=== PATIENT | male | born 1970 | race Two or more races ===

== ENCOUNTER 2024-07-27 07:47 | Outpatient (AMB) | payer MEDICAID, SELFPAY ==
[2024-07-27 07:57] VITALS: BP 137/90; PULSE 73; RESP 18; TEMP 36.6; O2SAT 94; BMI 47.9
--- NOTE | 2024-07-27 07:57 | ORTHONT_ITS ---
Vital signs 07/27/24 07:57 Height 1.56 m Height Method Stated Weight 116.658 kg Weight Measurement Method Standing Scale BMI 47.9 BP 137/90 H Blood Pressure Source Automatic Cuff Blood Pressure Location Left Upper Arm Position Sitting Respiration 18 Pulse 73 Pulse Source Monitor Temp 97.9 F Temp Source Temporal Artery Scan Pulse Oximetry (%) 94 L Oxygen Delivery Method Room Air Med/Allergies Allergies & Medications Allergies No Known Drug Allergies Allergy (Verified 07/27/24 07:58) Medication Reconciliation ergocalciferol (vitamin D2) 1,250 mcg (50,000 unit) capsule 1,250 mcg PO QWEEK 05/06/24 [History Confirmed 07/27/24] hydrochlorothiazide 25 mg tablet 25 mg PO QDAY 05/06/24 [History Confirmed 07/27/24] lisinopril 40 mg tablet 40 mg PO QDAY 05/06/24 [History Confirmed 07/27/24] tirzepatide (weight loss) 7.5 mg/0.5 mL subcutaneous pen injector (Zepbound) 7.5 mg subcut QWEEK 07/27/24 [History Confirmed 07/27/24] Subjective Visit Visit for: follow up visit and knee Immunization / Flu Flu Vaccine in the Last 12 Months: No Flu Vaccine Exclusion Criteria: Refused by Patient History of Present Illness Chief complaint: 3 MONTH FOLLOW UP Date of injury / onset of symptoms: 2 -3 YRS PAIN WORSENING SINCE JULY 2023 Patient is a 53 year old male With bilateral knee pain. The pain is on the medial aspect and his knees have been hurting him for a while. He tried injections which lasted only a week. He is also tried formal physical therapy and anti-inflammatories. The pain is affecting his quality life and happiness. He has lost 10 pounds and is on a weight loss injection. 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 Exam Exam Patient is in no acute distress and is cooperative with the examination today. Breathing is nonlabored. In no respiratory distress. Bilateral extremities were evaluated and demonstrates sensation intact to light touch. Palpable pedal pulses are present. No significant edema is present. Bilateral hips were examined. The patient has no pain with log roll of the hips. Internal rotation to 30 degrees and external rotation to 30 degrees is painless. Negative FADIR. The left knee was examined. The left knee is in [varus] alignment. Range of motion from 0-110 degrees. Knee is stable to varus and valgus as well as AP translation with <5mm. Patient has a [negative] McMurrays. There is [no] pain with patellofemoral compression and [no] crepitus noted. The knee is [tender] to palpation [medially]. The right knee was also examined. The right knee is in [varus] alignment. Range of motion from 0-110 degrees. Knee is stable to varus and valgus as well as AP translation with <5mm. Patient has a [negative] McMurrays. There is [no] pain with patellofemoral compression and [no] crepitus noted. The knee is [tender] to palpation [medially]. Bilateral knee x-rays from [place] [facility] demonstrate impressive varus deformity. There is complete obliteration of the medial joint space and osteophytes Assessment and Plan Problem List (1) Degenerative arthritis of knee, bilateral: Status: Acute Plan: Patient is a 53-year-old male with severe bilateral knee arthritis of both knees. There is Complete obliteration of medial joint space and varus deformity. His BMI is currently 50 at this time and unfortunately this puts him at an extremely high infection risk. He will need to be medically optimized and we recommend weight loss. He is on weight loss injections and has lost 10 pounds. Recommend knee cortisone injection as patient would like to proceed with conservative treatment at this time. The risks and benefits of the procedure were reviewed with the patient and patient gave verbal consent to continue with the procedure. Procedure: performed by Dr. Buckley Using sterile technique the left knee was thoroughly prepped with alcohol, and approximately 1 cc of Kenalog 40 mg/mL and 4 cc of 1% lidocaine was injected without resistance into the medial tibial femoral joint space. The patient tolerated the procedure. Office Procedures GNS Level of Care Nursing/Assessment Patient Status: Established Patient Nursing Assessment/Reassesment: Medication Reconciliation, Update PMH in EMR and Vital Signs Coordination of Care: Complex Care and Chronic Disease 1-5, Education Complex Pt/Fam, Consent,records obtained, informed consent, 1 Ins Authorization, Results/Orders obtained and Staff clarify orders Special Needs: Language special needs Established Patient Charge Established Patient Point Assignment: 110 Established Patient Point Charge: EP Level 3 (80-115) Surgical Proc/IM SQ injection Major Surgical Procedure: Yes (LEFT KNEE INJECTION) Medication Given Medication Given Medication Given: Yes Documented Dose Given: 4 Route: Infiitration Medication Given Medication Given Medication Given: Yes Documented Dose Given: 1 Route: Infiitration Office Meds Xylocaine 10 mg/mL (1 %) injection solution Performing Provider: Faraz Buckley MD Performing Location: [facility] Administered by: Faraz Buckley MD on 07/27/24 08:46 Dose Route Admin Location Dispensed Lot Number Expiration Date [facility] Assistant Professor In Family Studies 20 mL Infiltration 20 mL [id number] 04/23/27 91127-169-83 [facility] triamcinolone acetonide 40 mg/mL suspension for injection Performing Provider: Faraz Buckley MD Performing Location: [facility] Administered by: Faraz Buckley MD on 07/27/24 08:46 Dose Route Admin Location Dispensed Lot Number Expiration Date [facility] Assistant Professor In Family Studies 40 mg Infiltration 1 mL [id number] 01/21/26 3482-4803-75 [employer] PARENTERAL Past Medical History Past Medical History Have you ever been diagnosed with any of the following: Cardiology Problems Hypertension: Yes Respiratory Problems Smoking: No Smoking Exposure: No Tobacco Use: No Clubbing: No Exposure to Respiratory Irritants: No
== END 2024-07-27 08:21 | disposition home or self-care (01) ==
LOC: HODSRG 07:47
PROVIDERS: PCP Physician Assistant Medical; Referring Provider Physician Assistant Medical; Supervising Provider Orthopaedic Surgery Adult Reconstructive Orthopaedic Surgery; Visit Provider Orthopaedic Surgery Adult Reconstructive Orthopaedic Surgery
DX: M17.0 Bilateral primary osteoarthritis of knee (principal); M21.162 Varus deformity, not elsewhere classified, left knee; M21.161 Varus deformity, not elsewhere classified, right knee; I10 Essential (primary) hypertension
CPT/HCPCS: 20610; 99213; J3301; J3490; G0463

== ENCOUNTER 2024-09-28 08:05 | Outpatient (AMB) | payer MEDICAID, SELFPAY ==
--- NOTE | 2024-09-28 08:12 | ORTHONT_ITS ---
Vital signs 09/28/24 08:13 Height 1.56 m Height Method Stated Weight 112.689 kg Weight Measurement Method Standing Scale BMI 46.3 BP 112/78 Blood Pressure Source Automatic Cuff Blood Pressure Location Right Upper Arm Position Sitting Respiration 19 Pulse 109 H Pulse Source Monitor Temp 97.3 F Temp Source Temporal Artery Scan Pulse Oximetry (%) 94 L Oxygen Delivery Method Room Air Med/Allergies Allergies & Medications Allergies No Known Drug Allergies Allergy (Verified 09/28/24 08:13) Exam Exam Patient is in no acute distress and is cooperative with the examination today. Breathing is nonlabored. In no respiratory distress. Bilateral extremities were evaluated and demonstrates sensation intact to light touch. Palpable pedal pulses are present. No significant edema is present. Bilateral hips were examined. The patient has no pain with log roll of the hips. Internal rotation to 30 degrees and external rotation to 30 degrees is painless. Negative FADIR. The left knee was examined. The left knee is in [varus] alignment. Range of motion from 0-110 degrees. Knee is stable to varus and valgus as well as AP translation with <5mm. Patient has a [negative] McMurrays. There is [no] pain with patellofemoral compression and [no] crepitus noted. The knee is [tender] to palpation [medially]. The right knee was also examined. The right knee is in [varus] alignment. Range of motion from 0-110 degrees. Knee is stable to varus and valgus as well as AP translation with <5mm. Patient has a [negative] McMurrays. There is [no] pain with patellofemoral compression and [no] crepitus noted. The knee is [tender] to palpation [medially]. Bilateral knee x-rays from [place] [facility] demonstrate impressive varus deformity. There is complete obliteration of the medial joint space and osteophytes Assessment and Plan Problem List (1) Degenerative arthritis of knee, bilateral: Status: Acute Plan: Patient is a 53-year-old male with severe bilateral knee arthritis of both knees. There is Complete obliteration of medial joint space and varus deformity. His BMI is currently 50 at this time and unfortunately this puts him at an extremely high infection risk. He will need to be medically optimized and we recommend weight loss. He is on weight loss injections and has lost 10 pounds. We recommend weight loss again and discussed that he is at extremely high risk of infection. He seems confused regarding why and we spent an extensive amount of time explaining that this puts him at high risk of complications. Office Procedures GNS Level of Care Nursing/Assessment Patient Status: Established Patient Nursing Assessment/Reassesment: Medication Reconciliation, Update PMH in EMR and Vital Signs Coordination of Care: Complex Care and Chronic Disease 1-5, Education Complex Pt/Fam, Consent,records obtained, informed consent, Results/Orders obtained and Staff clarify orders Special Needs: Language special needs Established Patient Charge Established Patient Point Assignment: 95 Established Patient Point Charge: EP Level 3 (80-115) MA Intake Visit Data Collection New Patient or Established: Established Patient (seen at [facility] within 3 years) Reason for Visit:: F/u weightloss & knee pain Seen by Clinical Staff ONLY (RN/MA): No Verbal consent obtained for Telemed visit?: No 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: Yes PCP or OBGYN visit in last 3 months: Yes Hx Now: No Do You Feel Safe at Home: Yes Authorities Contacted: N/A Questionairres Past Medical History Past Medical History Have you ever been diagnosed with any of the following: Cardiology Problems Hypertension: Yes Respiratory Problems Smoking: No Smoking Exposure: No Tobacco Use: No Clubbing: No Exposure to Respiratory Irritants: No Subjective Visit Visit for: follow up visit and knee Immunization / Flu Flu Vaccine in the Last 12 Months: Yes Flu Vaccine Exclusion Criteria: Already Received History of Present Illness Chief complaint: f/u weightloss & knee pain Patient is a 53 year old male With bilateral knee pain. The pain is on the medial aspect and his knees have been hurting him for a while. He tried injections which lasted only a week. He is also tried formal physical therapy and anti-inflammatories. The pain is affecting his quality life and happiness. He has lost 10 pounds and is on a weight loss injection which he stopped recently. Pain Pain level (0-10): 8 Pain duration: ALL DAY Pain location: inside (medial), outside (lateral), anterior and posterior Pain quality: sharp, dull and aching Pain timing: night, increases with activity and stairs Associated signs & symptoms: numbness, weakness and stiffness Ambulatory data Ambulatory device: none Treatments Improvement with previous injections: No Improvement with PT: No Improvement with NSAIDS: no Review of Systems Review of Systems: All systems negative unless otherwise noted in HPI.
[2024-09-28 08:13] VITALS: BP 112/78; PULSE 109; RESP 19; TEMP 36.3; O2SAT 94; BMI 46.3
== END 2024-09-28 08:36 | disposition home or self-care (01) ==
LOC: HODSRG 08:05
PROVIDERS: PCP Physician Assistant Medical; Referring Provider Physician Assistant Medical; Supervising Provider Orthopaedic Surgery Adult Reconstructive Orthopaedic Surgery; Visit Provider Orthopaedic Surgery Adult Reconstructive Orthopaedic Surgery
DX: M17.0 Bilateral primary osteoarthritis of knee (principal); M21.162 Varus deformity, not elsewhere classified, left knee; M21.161 Varus deformity, not elsewhere classified, right knee; I10 Essential (primary) hypertension
CPT/HCPCS: 99213; G0463

== ENCOUNTER 2024-11-09 08:28 | Outpatient (AMB) | payer MEDICAID, SELFPAY ==
--- NOTE | 2024-11-09 08:33 | PD.ORTHCLVIS ---
Vital signs 11/09/24 08:45 Height 1.56 m Height Method Stated Weight 109.769 kg Weight Measurement Method Standing Scale BMI 45.1 BP 158/111 H Blood Pressure Source Automatic Cuff Blood Pressure Location Left Upper Arm Position Sitting Respiration 18 Pulse 74 Pulse Source Monitor Temp 97.8 F Temp Source Temporal Artery Scan Pulse Oximetry (%) 95 Oxygen Delivery Method Room Air Med/Allergies Allergies & Medications Allergies No Known Drug Allergies Allergy (Verified 11/09/24 08:47) Medication Reconciliation ergocalciferol (vitamin D2) 1,250 mcg (50,000 unit) capsule 1,250 mcg PO QWEEK 05/06/24 [History Confirmed 11/09/24] hydrochlorothiazide 25 mg tablet 25 mg PO QDAY 05/06/24 [History Confirmed 11/09/24] lisinopril 40 mg tablet 40 mg PO QDAY 05/06/24 [History Confirmed 11/09/24] tirzepatide (weight loss) 7.5 mg/0.5 mL subcutaneous pen injector (Zepbound) 7.5 mg subcut QWEEK 07/27/24 [History Confirmed 11/09/24] Exam Exam Patient is in no acute distress and is cooperative with the examination today. Breathing is nonlabored. In no respiratory distress. Bilateral extremities were evaluated and demonstrates sensation intact to light touch. Palpable pedal pulses are present. No significant edema is present. Bilateral hips were examined. The patient has no pain with log roll of the hips. Internal rotation to 30 degrees and external rotation to 30 degrees is painless. Negative FADIR. The left knee was examined. The left knee is in [varus] alignment. Range of motion from 0-110 degrees. Knee is stable to varus and valgus as well as AP translation with <5mm. Patient has a [negative] McMurrays. There is [no] pain with patellofemoral compression and [no] crepitus noted. The knee is [tender] to palpation [medially]. The right knee was also examined. The right knee is in [varus] alignment. Range of motion from 0-110 degrees. Knee is stable to varus and valgus as well as AP translation with <5mm. Patient has a [negative] McMurrays. There is [no] pain with patellofemoral compression and [no] crepitus noted. The knee is [tender] to palpation [medially]. Bilateral knee x-rays from [place] [facility] demonstrate impressive varus deformity. There is complete obliteration of the medial joint space and osteophytes Assessment and Plan Problem List (1) Degenerative arthritis of knee, bilateral: Status: Acute Plan: Patient is a 53-year-old male with severe bilateral knee arthritis of both knees. There is Complete obliteration of medial joint space and varus deformity. His BMI is currently 45 at this time. We recommend continued weight loss and we will do bilateral knee injections today. Recommend knee cortisone injection as patient would like to proceed with conservative treatment at this time. The risks and benefits of the procedure were reviewed with the patient and patient gave verbal consent to continue with the procedure. Procedure: performed by Dr. Buckley Using sterile technique the Right knee was thoroughly prepped with alcohol, and approximately 1 cc of Kenalog 40 mg/mL and 4 cc of 1% lidocaine was injected without resistance into the medial tibial femoral joint space. The patient tolerated the procedure. Office Procedures GNS Level of Care Nursing/Assessment Patient Status: Established Patient Nursing Assessment/Reassesment: Medication Reconciliation, Update PMH in EMR and Vital Signs Coordination of Care: Complex Care and Chronic Disease 1-5, Education Complex Pt/Fam, Consent,records obtained, informed consent, Results/Orders obtained and Staff clarify orders Special Needs: Language special needs Established Patient Charge Established Patient Point Assignment: 95 Established Patient Point Charge: EP Level 3 (80-115) Surgical Proc/IM SQ injection Major Surgical Procedure: Yes (RIGHT KNEE INJECTION) Medication Given Medication Given Medication Given: Yes Documented Dose Given: 4 Route: Infiitration Medication Given Medication Given Medication Given: Yes Documented Dose Given: 1 Route: Infiitration Office Meds Xylocaine 10 mg/mL (1 %) injection solution Performing Provider: Faraz Buckley MD Performing Location: [facility] Administered by: Faraz Buckley MD on 11/09/24 09:32 Dose Route Admin Location Dispensed Lot Number Expiration Date [facility] Supervisor Film Processing 20 mL Infiltration 20 mL [id number] 02/22/28 94410-969-61 [employer] triamcinolone acetonide 40 mg/mL suspension for injection Performing Provider: Faraz Buckley MD Performing Location: [facility] Administered by: Faraz Buckley MD on 11/09/24 09:32 Dose Route Admin Location Dispensed Lot Number Expiration Date [facility] Supervisor Film Processing 40 mg intra-articular KNEE 1 mL [id number] 06/23/26 [id number] TEVA PARENTERAL MA Intake Visit Data Collection New Patient or Established: Established Patient (seen at [facility] within 3 years) Reason for Visit:: F/U WEIGHTLOSS Seen by Clinical Staff ONLY (RN/MA): No Verbal consent obtained for Telemed visit?: No Teacher Dramatics Required: Yes PCP or OBGYN visit in last 3 months: Yes Hx Now: No Do You Feel Safe at Home: Yes Authorities Contacted: N/A Questionairres Past Medical History Past Medical History Have you ever been diagnosed with any of the following: Cardiology Problems Hypertension: Yes Respiratory Problems Smoking: No Smoking Exposure: No Tobacco Use: No Clubbing: No Exposure to Respiratory Irritants: No Subjective Visit Visit for: follow up visit, knee and injections Immunization / Flu Flu Vaccine in the Last 12 Months: Yes Flu Vaccine Exclusion Criteria: No Exclusion Criteria and Already Received History of Present Illness Chief complaint: f/u weightloss & knee pain Patient is a 53 year old male With bilateral knee pain. The pain is on the medial aspect and his knees have been hurting him for a while. He tried injections which lasted only a week. He is also tried formal physical therapy and anti-inflammatories. The pain is affecting his quality life and happiness. He has lost 10 pounds since we last saw him. Pain Pain level (0-10): 8 Pain duration: ALL DAY Pain location: inside (medial), outside (lateral), anterior and posterior Pain quality: sharp, dull and aching Pain timing: night, increases with activity and stairs Associated signs & symptoms: numbness, weakness and stiffness Ambulatory data Ambulatory device: cane and none Treatments Improvement with previous injections: No Improvement with PT: No Improvement with NSAIDS: no Review of Systems Review of Systems: All systems negative unless otherwise noted in HPI.
[2024-11-09 08:45] VITALS: BP 158/111; PULSE 74; RESP 18; TEMP 36.6; O2SAT 95; BMI 45.1
== END 2024-11-09 08:56 | disposition home or self-care (01) ==
LOC: HODSRG 08:28
PROVIDERS: PCP Physician Assistant Medical; Referring Provider Physician Assistant Medical; Supervising Provider Orthopaedic Surgery Adult Reconstructive Orthopaedic Surgery; Visit Provider Orthopaedic Surgery Adult Reconstructive Orthopaedic Surgery
DX: M17.0 Bilateral primary osteoarthritis of knee (principal); I10 Essential (primary) hypertension
CPT/HCPCS: 20610; 99213; J3301; J3490; G0463

== ENCOUNTER 2024-12-09 07:58 | Outpatient (AMB) | payer MEDICAID, SELFPAY ==
[2024-12-09 08:05] VITALS: BP 156/108; PULSE 80; RESP 18; TEMP 36.5; O2SAT 96; BMI 42.0
--- NOTE | 2024-12-09 08:05 | PD.ORTHCLVIS ---
Vital signs 12/09/24 08:05 Height 1.6 m Height Method Stated Weight 107.558 kg Weight Measurement Method Standing Scale BMI 42.0 BP 156/108 H Blood Pressure Source Automatic Cuff Blood Pressure Location Right Upper Arm Position Sitting Respiration 18 Pulse 80 Pulse Source Monitor Temp 97.7 F Temp Source Temporal Artery Scan Pulse Oximetry (%) 96 Oxygen Delivery Method Room Air Med/Allergies Allergies & Medications Allergies No Known Drug Allergies Allergy (Verified 12/09/24 08:08) Medication Reconciliation ergocalciferol (vitamin D2) 1,250 mcg (50,000 unit) capsule 1,250 mcg PO QWEEK 05/06/24 [History Confirmed 12/09/24] hydrochlorothiazide 25 mg tablet 25 mg PO QDAY 05/06/24 [History Confirmed 12/09/24] lisinopril 40 mg tablet 40 mg PO QDAY 05/06/24 [History Confirmed 12/09/24] tirzepatide (weight loss) 7.5 mg/0.5 mL subcutaneous pen injector (Zepbound) 7.5 mg subcut QWEEK 07/27/24 [History Confirmed 12/09/24] Exam Exam Patient is in no acute distress and is cooperative with the examination today. Breathing is nonlabored. In no respiratory distress. Bilateral extremities were evaluated and demonstrates sensation intact to light touch. Palpable pedal pulses are present. No significant edema is present. Bilateral hips were examined. The patient has no pain with log roll of the hips. Internal rotation to 30 degrees and external rotation to 30 degrees is painless. Negative FADIR. The left knee was examined. The left knee is in [varus] alignment. Range of motion from 0-110 degrees. Knee is stable to varus and valgus as well as AP translation with <5mm. Patient has a [negative] McMurrays. There is [no] pain with patellofemoral compression and [no] crepitus noted. The knee is [tender] to palpation [medially]. The right knee was also examined. The right knee is in [varus] alignment. Range of motion from 0-110 degrees. Knee is stable to varus and valgus as well as AP translation with <5mm. Patient has a [negative] McMurrays. There is [no] pain with patellofemoral compression and [no] crepitus noted. The knee is [tender] to palpation [medially]. Bilateral knee x-rays from [place] [facility] demonstrate impressive varus deformity. There is complete obliteration of the medial joint space and osteophytes Assessment and Plan Problem List (1) Degenerative arthritis of knee, bilateral: Status: Acute Plan: Patient is a 53-year-old male with severe bilateral knee arthritis of both knees. There is Complete obliteration of medial joint space and varus deformity. His BMI is currently 42 at this time. We recommend continued weight loss. I would need to get new weight bearing films as it has been over 18 months since the last ones. Iwould like for him to lose 5-6 pounds if possible. Office Procedures GNS Level of Care Nursing/Assessment Patient Status: Established Patient Nursing Assessment/Reassesment: Medication Reconciliation, Update PMH in EMR and Vital Signs Coordination of Care: Complex Care and Chronic Disease 1-5, Education Complex Pt/Fam, Consent,records obtained, informed consent, Results/Orders obtained and Staff clarify orders Special Needs: Language special needs Established Patient Charge Established Patient Point Assignment: 95 Established Patient Point Charge: EP Level 3 (80-115) MA Intake Visit Data Collection New Patient or Established: Established Patient (seen at [facility] within 3 years) Reason for Visit:: F/U WEIGHT LOSS Seen by Clinical Staff ONLY (RN/MA): No Hazardous Materials Waste 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: Yes PCP or OBGYN visit in last 3 months: Yes Hx Now: No Do You Feel Safe at Home: Yes Authorities Contacted: N/A Questionairres Past Medical History Past Medical History Have you ever been diagnosed with any of the following: Cardiology Problems Hypertension: Yes Respiratory Problems Smoking: No Smoking Exposure: No Tobacco Use: No Clubbing: No Exposure to Respiratory Irritants: No Subjective Visit Visit for: follow up visit Immunization / Flu Flu Vaccine in the Last 12 Months: No Flu Vaccine Exclusion Criteria: No Exclusion Criteria History of Present Illness Chief complaint: f/u weightloss & knee pain Patient is a 53 year old male With bilateral knee pain. The pain is on the medial aspect and his knees have been hurting him for a while. He tried injections which lasted only a week. He is also tried formal physical therapy and anti-inflammatories. The pain is affecting his quality life and happiness. He has lost 5 more pounds since i last saw him Pain Pain level (0-10): 7 Pain duration: COMES AND GOES Pain location: inside (medial) and anterior Pain quality: dull and aching Pain timing: increases with activity Associated signs & symptoms: weakness Ambulatory data Ambulatory device: cane Treatments Improvement with previous injections: No Improvement with PT: No Improvement with NSAIDS: no Review of Systems Review of Systems: All systems negative unless otherwise noted in HPI.
--- NOTE | 2024-12-09 08:19 | XR_ITS ---
Examination: Knee bilateral, 8 views Technique: Knee AP, lateral, oblique, axial H knee total 8 views Date and time of exam: December 09, 2024 0827 hours INDICATIONS: Bilateral knee pain years. FINDINGS: Bilateral advanced tricompartment osteoarthritis Old fracture deformity medial left tibial plateau No patellar dislocation IMPRESSION: Bilateral advanced tricompartment osteoarthritis
== END 2024-12-09 08:23 | disposition home or self-care (01) ==
LOC: HODSRG 07:58
PROVIDERS: PCP Physician Assistant Medical; Referring Provider Physician Assistant Medical; Supervising Provider Orthopaedic Surgery Adult Reconstructive Orthopaedic Surgery; Visit Provider Orthopaedic Surgery Adult Reconstructive Orthopaedic Surgery
DX: M17.0 Bilateral primary osteoarthritis of knee (principal); M21.162 Varus deformity, not elsewhere classified, left knee; M21.161 Varus deformity, not elsewhere classified, right knee; M25.562 Pain in left knee; M25.561 Pain in right knee; I10 Essential (primary) hypertension
CPT/HCPCS: 73564; 99213; G0463

== ENCOUNTER 2025-01-11 08:14 | Outpatient (AMB) | payer MEDICAID, SELFPAY ==
--- NOTE | 2025-01-11 08:50 | ORTHONT_ITS ---
Vital signs 01/11/25 08:52 Height 1.63 m Height Method Stated Weight 107.104 kg Weight Measurement Method Standing Scale BMI 40.5 BP 150/95 H Blood Pressure Source Automatic Cuff Blood Pressure Location Left Upper Arm Position Sitting Respiration 18 Pulse 76 Pulse Source Monitor Temp 97.6 F Temp Source Temporal Artery Scan Pulse Oximetry (%) 95 Oxygen Delivery Method Room Air Med/Allergies Allergies & Medications Allergies No Known Drug Allergies Allergy (Verified 01/11/25 08:56) Medication Reconciliation ergocalciferol (vitamin D2) 1,250 mcg (50,000 unit) capsule 1,250 mcg PO QWEEK 05/06/24 [History Confirmed 01/11/25] hydrochlorothiazide 25 mg tablet 25 mg PO QDAY 05/06/24 [History Confirmed 01/11/25] lisinopril 40 mg tablet 40 mg PO QDAY 05/06/24 [History Confirmed 01/11/25] tirzepatide (weight loss) 7.5 mg/0.5 mL subcutaneous pen injector (Zepbound) 7.5 mg subcut QWEEK 07/27/24 [History Confirmed 01/11/25] Exam Exam Patient is in no acute distress and is cooperative with the examination today. Breathing is nonlabored. In no respiratory distress. Bilateral extremities were evaluated and demonstrates sensation intact to light touch. Palpable pedal pulses are present. No significant edema is present. Bilateral hips were examined. The patient has no pain with log roll of the hips. Internal rotation to 30 degrees and external rotation to 30 degrees is painless. Negative FADIR. The left knee was examined. The left knee is in [varus] alignment. Range of motion from 0-110 degrees. Knee is stable to varus and valgus as well as AP translation with <5mm. Patient has a [negative] McMurrays. There is [no] pain with patellofemoral compression and [no] crepitus noted. The knee is [tender] to palpation [medially]. The right knee was also examined. The right knee is in [varus] alignment. Range of motion from 0-110 degrees. Knee is stable to varus and valgus as well as AP translation with <5mm. Patient has a [negative] McMurrays. There is [no] pain with patellofemoral compression and [no] crepitus noted. The knee is [tender] to palpation [medially]. Bilateral knee x-rays from [place] [facility] demonstrate impressive varus deformity. There is complete obliteration of the medial joint space and osteophytes. There is significant erosion of the medial tibial plateau. Assessment and Plan Problem List (1) Degenerative arthritis of knee, bilateral: Status: Acute Plan: Patient is a 53-year-old male with severe bilateral knee arthritis of both knees. There is Complete obliteration of medial joint space and varus deformity. His BMI is currently 40 at this time after a lot of weight loss. He has tried physical therapy, anti-inflammatories, and multiple injections with minimal relief. He will almost certainly need augments on the left The nature and purpose of the total knee replacement, alternative method(s) of treatment, the material risks involved, and the possibility of complications were fully explained to the patient. The patient does NOT have any of the following contraindications to TKA: - Active infection of the knee joint, OR - Active systemic bacteremia, OR - Active skin infection or open wound at surgical site, OR - Neuropathic arthritis, OR - Severe, rapidly progressive neurological disease, OR - Severe medical condition that makes risks of surgery outweigh the potential benefit The patient was told the most common risks and complications associated with a total knee replacement include, but are not limited to: blood clots in the leg, fatal pulmonary embolism, dislocation of the prosthesis, intraoperative and postoperative fractures of the femur or tibia, infection, failure of the prosthesis or grafting materials, complications from anesthesia, reactions to blood transfusions, postoperative leg length inequality, instability of the knee replacement, nerve damage or injury, vascular injury, delayed wound healing, infection, other injury or even . In addition, there are risks associated with anesthesia given during this operation. Also, the patient was told that after undergoing a total knee replacement there may still be persistent pain or disability. The patient was informed that the success of this operation in part depends upon the mechanical devices which are going to be implanted and that these devices can fail or malfunction, and may need to be repaired or replaced and there are no guarantees as to the longevity of this device or its parts and that it or its parts could fail prematurely. The patient was also notified that during the course of surgery, there may be a need to use bone graft from donors, and that any bone graft used will be carefully screened for communicable diseases, including AIDS, hepatitis, Bon-Creutzfeldt, or other diseases, but despite the screening procedures, there is a small chance that they could contract one of these diseases. Finally, the patient was asked to follow completely and fully with all advice and recommended treatments, and that recovery and ultimate outcome are affected by their compliance with recommended treatment. We discussed the risks, benefits and treatment alternatives, and the patient is interested in proceeding with surgery. We will try to set this up as expeditiously as possible. Office Procedures GNS Level of Care Nursing/Assessment Patient Status: Established Patient Nursing Assessment/Reassesment: Medication Reconciliation, Update PMH in EMR and Vital Signs Coordination of Care: Complex Care and Chronic Disease 1-5, Education Complex Pt/Fam, Consent,records obtained, informed consent, Results/Orders obtained and Staff clarify orders Special Needs: Language special needs Established Patient Charge Established Patient Point Assignment: 95 Established Patient Point Charge: Level 3 (80-115) MA Intake Visit Data Collection New Patient or Established: Established Patient (seen at [facility] within 3 years) Reason for Visit:: FOLLOW UP BL KNEE/WEIGHT LOSS/XRAY RESULTS Seen by Clinical Staff ONLY (RN/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 PCP or OBGYN visit in last 3 months: Yes Hx Now: No Do You Feel Safe at Home: Yes Authorities Contacted: N/A Questionairres Past Medical History Past Medical History Have you ever been diagnosed with any of the following: Cardiology Problems Hypertension: Yes Respiratory Problems Smoking: No Smoking Exposure: No Tobacco Use: No Clubbing: No Exposure to Respiratory Irritants: No Subjective Visit Visit for: follow up visit, knee and x-rays Immunization / Flu Flu Vaccine in the Last 12 Months: No Flu Vaccine Exclusion Criteria: No Exclusion Criteria History of Present Illness Chief complaint: f/u weightloss & knee pain Patient is a 53 year old male With bilateral knee pain. The pain is on the medial aspect and his knees have been hurting him for a while. He tried injections which lasted only a week. He is also tried formal physical therapy and anti-inflammatories. The pain is affecting his quality life and happiness. He has lost a significant amount of weight since we have last seen him. His BMI is now 40. He has Tried Injections, home exercise Pain Pain level (0-10): 6 Pain duration: ALL DAY Pain location: inside (medial) and anterior Pain quality: sharp, dull and aching Pain timing: night, increases with activity and stairs Associated signs & symptoms: weakness Ambulatory data Ambulatory device: none Treatments Improvement with previous injections: No Improvement with PT: No Improvement with NSAIDS: no Review of Systems Review of Systems: All systems negative unless otherwise noted in HPI.
[2025-01-11 08:52] VITALS: BP 150/95; PULSE 76; RESP 18; TEMP 36.4; O2SAT 95; BMI 40.5
== END 2025-01-11 09:29 | disposition home or self-care (01) ==
LOC: HODSRG 08:14
PROVIDERS: PCP Physician Assistant Medical; Referring Provider Physician Assistant Medical; Supervising Provider Orthopaedic Surgery Adult Reconstructive Orthopaedic Surgery; Visit Provider Orthopaedic Surgery Adult Reconstructive Orthopaedic Surgery
DX: M17.0 Bilateral primary osteoarthritis of knee (principal); M21.162 Varus deformity, not elsewhere classified, left knee; M21.161 Varus deformity, not elsewhere classified, right knee; I10 Essential (primary) hypertension
CPT/HCPCS: 99213; G0463

== ENCOUNTER 2025-04-05 10:52 | Outpatient (AMB) | payer MEDICAID, SELFPAY ==
--- NOTE | 2025-04-05 11:15 | PD.ORTHCLVIS ---
Vital signs 04/05/25 11:16 Height 1.63 m Height Method Stated Weight 110.223 kg Weight Measurement Method Standing Scale BMI 41.5 BP 148/98 H Blood Pressure Source Automatic Cuff Blood Pressure Location Left Upper Arm Position Sitting Respiration 18 Pulse 78 Pulse Source Monitor Temp 97.2 F Temp Source Temporal Artery Scan Pulse Oximetry (%) 96 Oxygen Delivery Method Room Air Med/Allergies Allergies & Medications Allergies No Known Drug Allergies Allergy (Verified 04/05/25 11:16) Medication Reconciliation ergocalciferol (vitamin D2) 1,250 mcg (50,000 unit) capsule 1,250 mcg PO QWEEK 05/06/24 [History Confirmed 04/05/25] hydrochlorothiazide 25 mg tablet 25 mg PO QDAY 05/06/24 [History Confirmed 04/05/25] lisinopril 40 mg tablet 40 mg PO QDAY 05/06/24 [History Confirmed 04/05/25] tirzepatide (weight loss) 7.5 mg/0.5 mL subcutaneous pen injector (Zepbound) 7.5 mg subcut QWEEK 07/27/24 [History Confirmed 04/05/25] Exam Exam Patient is in no acute distress and is cooperative with the examination today. Breathing is nonlabored. In no respiratory distress. Bilateral extremities were evaluated and demonstrates sensation intact to light touch. Palpable pedal pulses are present. No significant edema is present. Bilateral hips were examined. The patient has no pain with log roll of the hips. Internal rotation to 30 degrees and external rotation to 30 degrees is painless. Negative FADIR. The left knee was examined. The left knee is in [varus] alignment. Range of motion from 0-110 degrees. Knee is stable to varus and valgus as well as AP translation with <5mm. Patient has a [negative] McMurrays. There is [no] pain with patellofemoral compression and [no] crepitus noted. The knee is [tender] to palpation [medially]. The right knee was also examined. The right knee is in [varus] alignment. Range of motion from 0-110 degrees. Knee is stable to varus and valgus as well as AP translation with <5mm. Patient has a [negative] McMurrays. There is [no] pain with patellofemoral compression and [no] crepitus noted. The knee is [tender] to palpation [medially]. Bilateral knee x-rays from [place] [facility] demonstrate impressive varus deformity. There is complete obliteration of the medial joint space and osteophytes. There is significant erosion of the medial tibial plateau. Assessment and Plan Problem List (1) Degenerative arthritis of knee, bilateral: Status: Acute Plan: Patient is a 53-year-old male with severe bilateral knee arthritis of both knees. There is Complete obliteration of medial joint space and varus deformity. His BMI is currently 40 at this time after a lot of weight loss. He has tried physical therapy, anti-inflammatories, and multiple injections with minimal relief. He will almost certainly need augments on the left The nature and purpose of the total knee replacement, alternative method(s) of treatment, the material risks involved, and the possibility of complications were fully explained to the patient. The patient does NOT have any of the following contraindications to TKA: - Active infection of the knee joint, OR - Active systemic bacteremia, OR - Active skin infection or open wound at surgical site, OR - Neuropathic arthritis, OR - Severe, rapidly progressive neurological disease, OR - Severe medical condition that makes risks of surgery outweigh the potential benefit The patient was told the most common risks and complications associated with a total knee replacement include, but are not limited to: blood clots in the leg, fatal pulmonary embolism, dislocation of the prosthesis, intraoperative and postoperative fractures of the femur or tibia, infection, failure of the prosthesis or grafting materials, complications from anesthesia, reactions to blood transfusions, postoperative leg length inequality, instability of the knee replacement, nerve damage or injury, vascular injury, delayed wound healing, infection, other injury or even . In addition, there are risks associated with anesthesia given during this operation. Also, the patient was told that after undergoing a total knee replacement there may still be persistent pain or disability. The patient was informed that the success of this operation in part depends upon the mechanical devices which are going to be implanted and that these devices can fail or malfunction, and may need to be repaired or replaced and there are no guarantees as to the longevity of this device or its parts and that it or its parts could fail prematurely. The patient was also notified that during the course of surgery, there may be a need to use bone graft from donors, and that any bone graft used will be carefully screened for communicable diseases, including AIDS, hepatitis, Bon-Creutzfeldt, or other diseases, but despite the screening procedures, there is a small chance that they could contract one of these diseases. Finally, the patient was asked to follow completely and fully with all advice and recommended treatments, and that recovery and ultimate outcome are affected by their compliance with recommended treatment. We discussed the risks, benefits and treatment alternatives, and the patient is interested in proceeding with surgery. We will try to set this up as expeditiously as possible. Office Procedures GNS Level of Care Nursing/Assessment Patient Status: Established Patient Nursing Assessment/Reassesment: Medication Reconciliation, Update PMH in EMR and Vital Signs Coordination of Care: Complex Care and Chronic Disease 1-5, Education Complex Pt/Fam, Consent,records obtained, informed consent, Results/Orders obtained and Staff clarify orders Special Needs: Language special needs Established Patient Charge Established Patient Point Assignment: 95 Established Patient Point Charge: EP Level 3 (80-115) MA Intake Visit Data Collection New Patient or Established: Established Patient (seen at [facility] within 3 years) Reason for Visit:: PRE OP L TKA SX SCHEDULED 04/13 Seen by Clinical Staff ONLY (RN/MA): No [employer]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 PCP or OBGYN visit in last 3 months: Yes Hx Now: No Do You Feel Safe at Home: Yes Authorities Contacted: N/A Questionairres Past Medical History Past Medical History Have you ever been diagnosed with any of the following: Cardiology Problems Hypertension: Yes Respiratory Problems Smoking: No Smoking Exposure: No Tobacco Use: No Clubbing: No Exposure to Respiratory Irritants: No Subjective Visit Visit for: follow up visit and knee Immunization / Flu Flu Vaccine in the Last 12 Months: No Flu Vaccine Exclusion Criteria: No Exclusion Criteria History of Present Illness Chief complaint: f/u weightloss & knee pain Patient is a 53 year old male With bilateral knee pain. The pain is on the medial aspect and his knees have been hurting him for a while. He tried injections which lasted only a week. He is also tried formal physical therapy and anti-inflammatories. The pain is affecting his quality life and happiness. He has lost a significant amount of weight since we have last seen him. His BMI is now 40. He has Tried Injections, home exercise Personal History BMI Counceling provided: Yes Additional comments: WALKER WAS GIVEN TO PATIENT HAS SX SCHEDULED FOR 04/13 @ 730AM. PATIENT WAS GIVEN CT ORDER TO GET DONE TODAY Pain Pain level (0-10): 6 Pain duration: ALL DAY Pain location: inside (medial) and anterior Pain quality: sharp, dull and aching Pain timing: night, increases with activity and stairs Associated signs & symptoms: weakness Ambulatory data Ambulatory device: none Treatments Improvement with previous injections: No Improvement with PT: No Improvement with NSAIDS: no Review of Systems Review of Systems: All systems negative unless otherwise noted in HPI.
[2025-04-05 11:16] VITALS: BP 148/98; PULSE 78; RESP 18; TEMP 36.2; O2SAT 96; BMI 41.5
== END 2025-04-05 11:46 | disposition home or self-care (01) ==
PROVIDERS: PCP Physician Assistant Medical; Referring Provider Physician Assistant Medical; Supervising Provider Orthopaedic Surgery Adult Reconstructive Orthopaedic Surgery; Visit Provider Orthopaedic Surgery Adult Reconstructive Orthopaedic Surgery
DX: M17.0 Bilateral primary osteoarthritis of knee (principal); M21.162 Varus deformity, not elsewhere classified, left knee; M21.161 Varus deformity, not elsewhere classified, right knee; I10 Essential (primary) hypertension
CPT/HCPCS: 99213; G0463

== ENCOUNTER → 2025-04-05 | Outpatient (CLI) | payer MEDICAID, SELFPAY ==
--- NOTE | 2025-04-05 | XR_ITS ---
Examination: CT lumbar spine without intravenous contrast, without contrast. 2-D sagittal reconstructions. 2-D coronal reconstructions. 3-D reconstructions. Date and time of exam:April 05, 2025 1156 hours INDICATIONS: Diagnosis left knee unilateral osteoarthritis, left knee pain one year CTDI: vol (mGy):13.1 DLP: (mGycm):889 Technique: Multiple 1.25 mm axial sections of the left lower extremity without intravenous contrast have been obtained. 2-D sagittal and coronal reconstructions have been obtained. 3-D reconstructions have been obtained. Low dose protocols were performed. One or more of the following dose reduction techniques were used; automated exposure control, adjustment of the mA and/or KV according to patient size, use of iterative reconstruction technique. 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
== END | disposition home or self-care (01) ==
PROVIDERS: PCP Physician Assistant Medical; Referring Provider Orthopaedic Surgery Adult Reconstructive Orthopaedic Surgery; Visit Provider Orthopaedic Surgery Adult Reconstructive Orthopaedic Surgery
DX: M17.12 Unilateral primary osteoarthritis, left knee (principal); Z87.81 Personal history of (healed) traumatic fracture
CPT/HCPCS: 73700

== ENCOUNTER 2025-04-13 07:05 | Day surgery (SDC) | payer MEDICAID, SELFPAY ==
--- NOTE | 2025-04-12 06:00 | EKG_ITS ---
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
[2025-04-12 08:24] VITALS: BMI 47.9
[2025-04-12 10:26] LABS: Basophils # (Auto) 0.1 Thou/mm3 (0.0-0.2); Basophils % (Auto) 1 % (0-2.5); Eosinophils # (Auto) 0.5 Thou/mm3 (0.0-0.5); Eosinophils % (Auto) 4 % (0-10); Hematocrit 43.7 % (41.0-53.0); Hemoglobin 14.5 g/dL (13.5-16.0); Immature Granulocytes Auto 0.06 Thou/mm3 (0.00-0.00); Lymphocytes # (Auto) 2.6 Thou/mm3 (1.0-4.8); Lymphocytes % (Auto) 22 % (10-50); Mean Corpuscular HGB Conc 33.2 g/dl (31.0-37.0); Mean Corpuscular Hemoglobin 27.8 pg (25.0-35.0); Mean Corpuscular Volume 84 fL (80-100); Monocytes # (Auto) 1.1 Thou/mm3 (0.0-0.8); Monocytes % (Auto) 10 % (0-12); Neutrophils # (Auto) 7.1 Thou/mm3 (1.8-7.7); Neutrophils % (Auto) 62 % (37-80); Nucleated Red Blood Cell # 0.00 Thou/mm3 (0.00-0.00); Nucleated Red Blood Cell % 0 /100 WBC (0); Platelet Count 248 Thou/mm3 (140-440); RDW Standard Deviation 42.2 fL (35.1-43.9); Red Blood Count 5.22 Miln/mm3 (4.50-5.90); White Blood Count 11.5 Thou/mm3 (3.8-10.6)
[2025-04-12 10:28] LABS: INR 1.0 (0.9-1.3); Partial Thromboplastin Time 25.1 Seconds (22.0-36.0); Prothrombin Time 10.6 Seconds (9.0-12.2)
[2025-04-12 10:35] LABS: Alanine Aminotransferase 23 U/L (10-49); Albumin, Serum 4.6 gm/dL (3.5-5.0); Albumin/Globulin Ratio 1.6 (1.2-2.2); Alkaline Phosphatase 150 U/L (46-116); Anion Gap 9 (7-16); Aspartate Amino Transferase 37 U/L (0-34); BUN/Creatinine Ratio 13 Ratio (12-20); Bilirubin,Total 0.6 mg/dL (0.3-1.2); Blood Urea Nitrogen 13 mg/dL (9-23); Calcium 10.0 mg/dL (8.3-10.6); Calcium (Corrected) 10.0 mg/dL (8.5-10.1); Carbon Dioxide 28.2 mMol/L (20.0-31.0); Chloride 104 mMol/L (98-107); Creatinine (Component) 1.0 mg/dL (0.6-1.3); Estimated Creatinine Clearance 90.1 mL/min (>60); Globulin 2.8 gm/dL (2.3-3.5); Glucose 96 mg/dL (74-106); Osmolality,Calculated 281 (275-295); Potassium 4.2 mMol/L (3.4-5.1); Sodium 141 mMol/L (136-145); Total Protein 7.4 gm/dL (5.7-8.2); eGFR > 60 See Note
[2025-04-13] VITALS (15 sets, daily range): BP systolic 101–152; BP diastolic 75–101; PULSE 73–105; RESP 12–20; TEMP 36.1–36.7; O2SAT 95–98; BMI 47.2; BMI 14.0
--- NOTE | 2025-04-13 07:25 | CHAP ---
Prayed with patient before his procedure.
[2025-04-13] MEDS: MELOXICAM 7.5 MG TABLET PO (08:04)
[2025-04-13] MEDS: PREGABALIN 75 MG CAPSULE PO (08:04)
[2025-04-13] MEDS: ACETAMINOPHEN 325 MG TABLET 650 MG PO (08:04)
--- NOTE | 2025-04-13 12:16 | XR_ITS ---
Examination: Left knee 2 views Technique: AP lateral left knee 2 views Date and time: April 13, 2025 1227 hours INDICATIONS: Postop knee arthroplasty. FINDINGS: Total left knee arthroplasty. Satisfactory alignment Prominent osteopenia No fracture IMPRESSION: Total left knee arthroplasty with satisfactory alignment.
--- NOTE | 2025-04-13 12:46 | PD.SUROPNT ---
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 X-rays show degenerative arthritis involving the knee. Over the past several years the patient has had increasing pain, progressive limitation in function. He has failed conservative measures including activity modification, physical therapy, injections, anti-inflammatories, and assistive devices. After a lengthy discussion of the risks and benefits, the patient presents now for total knee replacement. The nature and purpose of the total knee replacement, alternative method(s) of treatment, the material risks involved, and the possibility of complications were fully explained to the patient. The patient was told the most common risks and complications associated with a total knee replacement include, but are not limited to blood clots in the leg, fatal pulmonary embolism, dislocation of the prosthesis, intraoperative and postoperative fractures of the femur or tibia, infection, failure of the prosthesis or grafting materials, complications from anesthesia, reactions to blood transfusions, postoperative leg length inequality, instability of the knee replacement, nerve damage or injury, vascular injury, delayed wound healing, infections, other injury or even . In addition, there are risks associated with anesthesia given during this operation, temporary or permanent numbness on the skin lateral to the incision can be a complication unique to total knee surgery, and kneeling can be painful after knee replacement surgery. Also, the patient was told that after undergoing a total knee replacement there may still be pain or disability. We discussed with the patient that we will be using a robot-assisted technology. We discussed that there is a possibility of converting to manual instrumentation. The patient was informed that the success of this operation in part depends upon the mechanical devices which are going to be implanted and that these devices can fail or malfunction, and may need to be repaired or replaced and there are no guarantees as to the longevity of this device or its part and that it or its parts could fail prematurely. Finally, the patient was asked to follow completely and fully with all advice and recommended treatments, and that recovery and ultimate outcome are affected by their compliance with recommended treatment. Surgical technique: Patient was marked and consented in the pre-operative area. The patient was brought to the operating room and placed on the operating table in a supine position. Prior to positioning, a timeout procedure was performed between the surgeon, the anesthesiologist, and the nursing staff where the patient and the operative side were identified and confirmed. After adequate general anesthetic was obtained, the right lower extremity was prepped and draped in the usual sterile fashion. A weight based dose of Cefazolin were administered within 1 hour prior to incision. The robot was preregistered and calirated before the incision. The extremity was exsanguinated with an esmarch badge and tourniquet inflated to 250mmHg. A midline incision was made. A median parapatellar arthrotomy was made. The patella was subluxed laterally. A medial release was performed to expose the medial tibia. A large tibial fragment from a nonunion was evident. 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 We removed this fragment ensuring that the MCL attachment would remain intact. His femoral and tibial pins were placed through an intra incisional manner for both cases. Every effort was made to ensure that the distal most aspect of the pin was hung in the second cortex. The arrays were then tightened several times to ensure that it was fixed for the remainder of the case. Both femoral and tibial checkpoints were then placed. We then went through the registration process of the bone. We then assessed the knee deformity and attempted to correct it. We also used the robot to aid in judging laxity in both extension and flexion which was difficult given the large medial defect.. Final based on laxity and alignment we changed the preoperative assessment to obtain proper proper implant positioning and to correct deformity. Attention was then placed to the tibia. We made a tibial cut using the robot ensuring that both the MCL and the patella tendon were protected with retractors. We then placed a trial to assess rotation and to plan the sagital cut of the tibia. We then cut the medial side 10mm deeper to ensure that we were on bone in order to cut the augment. After this cut was done we used a recip saw to finish the augment cut. We placed retractors posteriorly during all tibial cut as well. We then went to the femur and made the posterior cut followed by the anterior cut and the anterior chamfer. The bone was then removed and we made a distal femur cut and a posterior chamfer cut. We verified all cuts. We then cut the box to accept a PS A trial reduction was performed with a size 4 femoral component and a size 3 keeled tibial component. The patella tracked centrally, and no lateral retinacular release was necessary. The trial implants were removed. The arrays, pins, and checkpoints were all removed. We performed a verification that all pins were removed. The cut bone surfaces were lavaged. A size 4 right femoral component, a size 3 keeled tibial component were impacted into position using 2 bags of palacos for both the tibia and femur separately. The tibia was cemented after throrough irrigation of the canal and placement of a cement restrictor followed by suctioning and pressurization of the canal. A trial insert was placed and impacted into position. The knee was placed in extension until the cement hardened. The knee was felt to be well balanced in the sagittal and coronal plane. The final 3x13 mm PS insert was impacted into the tibial tray. The knee was brought out to full extension, flexed up to 120 degrees. It was stable to varus and valgus stress and appropriately balanced in flexion and extension. The wounds were copiously irrigated following deflation of tourniquet. The medial retinaculum was reapproximated with #1 vicryl and quill. The subcutaneous tissues were closed with 0 and 2-0 interrupted Vicryl. The skin was closed with 3-0 Monofilament V loc suture. A sterile dressing was applied. The patient was transferred to a bed and brought to recovery in stable condition. The patient tolerated the procedure well. There were no intraoperative complications. Sponge and needle counts were correct times 2. As the attending surgeon, I attest I was present and performed the entire operation. Grafts/Implants Size 4 PS Femur Size 3 Tibia 13mm PS 2 bags of palacos PLan: DC tomorrow abx knee immobilizer for 2 weeks Anesthesia GETA Implants ryan Pathology / specimen None Pathology comment: none Estimated Blood Loss 150 Condition Stable Disposition floor Surgeon Faraz Buckley MD Surgical Staff Operation Date: 04/13/25 10:00 Case Staff Anesthesiologist: Mckay Bradley RN First Assistant: Selma Wen
--- NOTE | 2025-04-13 12:54 | XR_ITS ---
Examination: Left knee 2 views Technique one AP lateral left knee 2 views Date and time: April 13, 2025 1353 hours INDICATIONS: Postop knee replacement LUNGS: Total left knee arthroplasty. Satisfactory alignment No fracture IMPRESSION: Total left knee arthroplasty with satisfactory alignment
--- NOTE | 2025-04-13 13:15 | SUR.PHASEI ---
Addendum entered by Jennifer Monge RN 04/13/25 17:05: patient has good circulation to left lower extremity; skin color normal for patient and warm to touch, bilateral dorsalis pedis pulses present when palpated. Original Note: 1315 Patient arrived to recovery resting comfortably in bed, on oxygen 10L via oxy mask with a nasal ariway in place, breathing unlabored, vital signs stable, dressing intact to left knee; prineo, telfa, abd, webril roll, eric wraps, with knee immobolizer, no bleeding noted, report received from Dr. Bradley and Jennifer THOMAS
--- NOTE | 2025-04-13 15:15 | SUR.PHASEI ---
[address] Dr[address] Buckley on three way call with this underwriter solicitation director and /patient and telephone ocularist Veronica ID#[id number], Dr. Buckley explained the surgery with patient and his ; all questions answer, and that patient is to stay in the hospital or can go home if patient can keep his oxygen level within normal limits, patient has possible sleep apnea and encouraged by MD to follow up with primary care provider, will give patient incentive spirometer and starting weaning off oxygen and work with patient to go home per MD order 1450 patient and son at bedside and decided they wish for him to go home today and not spend the night 1500 patient off oxygen working with incentive spirometer, oxygen level within normal limits 1510 patient is continuing to sustain his oxygen within normal limits 1515 patient is continuing to sustain his oxygen within normal limits
--- NOTE | 2025-04-13 15:50 | SUR.PHASEII ---
1551 patient cleared by physical therapist Claire to proceed with discharge
--- NOTE | 2025-04-13 16:17 | SUR.PHASEII ---
1617 Patient meets discharge criteria from recovery, awake and alert, breathing unlabored, vital signs stable, denies pain, dressing intact; no bleeding noted, ate two jello's and drinking 7up; tolerating well, denies nausea, patient assisted with dressing into his clothing by his , patient signed limited proficiency statement for his son to healthcare interpreter French to him, discharge instructions given to patient and patients son/, son signed discharge instructions. Patient given all his belongings prior to discharge, transported via wheelchair and left in a private vehicle.
== END 2025-04-13 16:17 | disposition home or self-care (01) ==
PROVIDERS: Anesthesiology; PCP Physician Assistant Medical; Referring Provider Orthopaedic Surgery Adult Reconstructive Orthopaedic Surgery; Visit Provider Orthopaedic Surgery Adult Reconstructive Orthopaedic Surgery
PROC: (CPT 27447; principal; 2025-04-13 10:00)
DX: S82.141K Displaced bicondylar fracture of right tibia, subsequent encounter for closed fracture with nonunion (principal); M17.0 Bilateral primary osteoarthritis of knee; X58.XXXD Exposure to other specified factors, subsequent encounter
CPT/HCPCS: 27447; 20985; 36415; 73560; 80053; 85025; 85610; 85730; 93005; 97162; A4217; A4649; C1713; C1776; J0690; J1100; J1171; J1885; J2250; J2405; J2704; J2795; J3010; J3490; J7999; A4648; A9270

== ENCOUNTER 2025-04-28 08:34 | Outpatient (AMB) | payer MEDICAID, SELFPAY ==
--- NOTE | 2025-04-28 08:52 | PD.ORTHCLVIS ---
Vital signs 04/28/25 08:53 Height 1.52 m Height Method Stated Weight 106.793 kg Weight Measurement Method Standing Scale BMI 46.2 BP 122/85 H Blood Pressure Source Automatic Cuff Blood Pressure Location Left Upper Arm Position Sitting Respiration 18 Pulse 100 Pulse Source Monitor Temp 97.2 F Temp Source Temporal Artery Scan Pulse Oximetry (%) 96 Oxygen Delivery Method Room Air Med/Allergies Allergies & Medications Allergies No Known Drug Allergies Allergy (Verified 04/28/25 09:01) Medication Reconciliation hydrochlorothiazide 25 mg tablet 25 mg PO QDAY 05/06/24 [History Confirmed 04/28/25] losartan 100 mg tablet 100 mg PO DAILY 04/12/25 [History Confirmed 04/28/25] acetaminophen 500 mg tablet (Acetaminophen Extra Strength) 1,000 mg (2 x 500 mg) PO Q6H PRN pain #90 tabs 04/13/25 [Rx Confirmed 04/28/25] aspirin 81 mg tablet,delayed release 81 mg PO BID #60 tabs 04/13/25 [Rx Confirmed 04/28/25] doxycycline hyclate 100 mg tablet 100 mg PO BID #14 tabs 04/13/25 [Rx Confirmed 04/28/25] gabapentin 300 mg capsule 300 mg PO .qhs #30 caps 04/13/25 [Rx Confirmed 04/28/25] oxycodone 5 mg tablet 5 mg PO Q6H PRN pain #28 tabs 04/13/25 [Rx Confirmed 04/28/25] sennosides 8.6 mg-docusate sodium 50 mg tablet (Senna-S) 1 tab-cap PO QDAY #30 tabs 04/13/25 [Rx Confirmed 04/28/25] Exam Exam Patient is in no acute distress and is cooperative with the examination today. Breathing is nonlabored. In no respiratory distress. Bilateral extremities were evaluated and demonstrates sensation intact to light touch. Palpable pedal pulses are present. No significant edema is present. Bilateral hips were examined. The patient has no pain with log roll of the hips. Internal rotation to 30 degrees and external rotation to 30 degrees is painless. Negative FADIR. Left knee incisions clean dry and intact. Range of motion is 0 to 110 degrees Assessment and Plan Problem List (1) Degenerative arthritis of knee, bilateral: Status: Acute Plan: Patient is a 53-year-old male with severe bilateral knee arthritis of both knees. patient is doing well status post left total knee replacement. We will see him back in approximately 4 weeks routine follow-up. She has started outpatient physical therapy He would like to discuss contralateral knee replacement as well as Office Procedures GNS Level of Care Nursing/Assessment Patient Status: Established Patient Nursing Assessment/Reassesment: Medication Reconciliation, Update PMH in EMR and Vital Signs Coordination of Care: Complex Care and Chronic Disease 1-5, Education Complex Pt/Fam, Consent,records obtained, informed consent, Results/Orders obtained and Staff clarify orders Special Needs: Language special needs Established Patient Charge Established Patient Point Assignment: 95 Established Patient Point Charge: EP Level 3 (80-115) MA Intake Visit Data Collection New Patient or Established: Established Patient (seen at [facility] within 3 years) Reason for Visit:: 2 WEEK POST OP Seen by Clinical Staff ONLY (RN/MA): No 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 PCP or OBGYN visit in last 3 months: Yes Hx Now: No Do You Feel Safe at Home: Yes Authorities Contacted: N/A Questionairres Past Medical History Past Medical History Have you ever been diagnosed with any of the following: Neurological Problems Seizures: No Cardiology Problems Congestive Heart Failure: No Hypertension: Yes Varicose Veins: Yes Respiratory Problems Chronic Obstructive Pulmonary Disease (COPD): No Smoking: No Smoking Exposure: No Tobacco Use: No Clubbing: No Exposure to Respiratory Irritants: No Stomache/Intestinal Problems Hepatitis: No Obesity: Yes Genital/Urinary Problems Renal Disease: No Musculoskeletal Problems Arthritis: Yes Endocrine Problems Diabetes Mellitus Type 1: No Diabetes Mellitus Type 2: No Other Problems Hospitalization: No Shingles: No Falls: Yes Blood Transfusions: No Blood Transfusion Reaction: No (n/a) Anesthesia Reactions: No Chicken Pox: Yes Measles: No Cancer: No Subjective Visit Visit for: follow up visit, post op #1 and knee Immunization / Flu Flu Vaccine in the Last 12 Months: No Flu Vaccine Exclusion Criteria: No Exclusion Criteria History of Present Illness Chief complaint: 2 WEEK POST OP Laurent is a pleasant 54-year-old male with left knee neuritis. He is doing well status post left total knee replacement. This is a complex left total knee replacement complex. He is very happy with pain relief Personal History BMI Counceling provided: Yes Pain Pain level (0-10): 6 Pain duration: ON AND OFF Pain location: anterior Pain quality: aching Associated signs & symptoms: numbness Ambulatory data Ambulatory device: walker Treatments Improvement with previous injections: No Improvement with PT: No Improvement with NSAIDS: no Review of Systems Review of Systems: All systems negative unless otherwise noted in HPI.
[2025-04-28 08:53] VITALS: BP 122/85; PULSE 100; RESP 18; TEMP 36.2; O2SAT 96; BMI 46.2
== END 2025-04-28 09:23 | disposition home or self-care (01) ==
PROVIDERS: PCP Physician Assistant Medical; Referring Provider Physician Assistant Medical; Supervising Provider Orthopaedic Surgery Adult Reconstructive Orthopaedic Surgery; Visit Provider Orthopaedic Surgery Adult Reconstructive Orthopaedic Surgery
DX: M17.0 Bilateral primary osteoarthritis of knee (principal); Z96.652 Presence of left artificial knee joint; I10 Essential (primary) hypertension; E66.9 Obesity, unspecified; Z71.3 Dietary counseling and surveillance; Z68.42 Body mass index [BMI] 45.0-49.9, adult
CPT/HCPCS: 99213; G0463

== ENCOUNTER 2025-05-26 08:18 | Outpatient (AMB) | payer MEDICAID, SELFPAY ==
--- NOTE | 2025-05-26 08:30 | XR_ITS ---
Examination: Bilateral knees 2 views Right lateral knee left lateral knee 2 views Bilateral axial knees single view TECHNIQUE: Bilateral AP knees standing single view, bilateral PA knees standing single view flexion Standing right lateral knee left lateral knee 2 views Bilateral axial knees single view total 5 views Date and time: May 26, 2025 0842 hours INDICATIONS: Left knee surgery April 13, 2025, right knee pain one year. FINDINGS: Prominent osteopenia Severe right knee tricompartment osteoarthritis No fracture Total left knee arthroplasty. Satisfactory alignment IMPRESSION: Severe right knee tricompartment osteoarthritis
--- NOTE | 2025-05-26 08:33 | PD.ORTHCLVIS ---
Vital signs 05/26/25 08:53 Height 1.52 m Height Method Measured Weight 109.769 kg Weight Measurement Method Standing Scale BMI 47.5 BP 145/94 H Blood Pressure Source Automatic Cuff Blood Pressure Location Left Upper Arm Position Sitting Respiration 18 Pulse 69 Pulse Source Monitor Temp 97.5 F Temp Source Temporal Artery Scan Pulse Oximetry (%) 97 Oxygen Delivery Method Room Air Med/Allergies Allergies & Medications Allergies No Known Drug Allergies Allergy (Verified 05/26/25 08:54) Medication Reconciliation hydrochlorothiazide 25 mg tablet 25 mg PO QDAY 05/06/24 [History Confirmed 05/26/25] losartan 100 mg tablet 100 mg PO DAILY 04/12/25 [History Confirmed 05/26/25] acetaminophen 500 mg tablet (Acetaminophen Extra Strength) 1,000 mg (2 x 500 mg) PO Q6H PRN pain #90 tabs 04/13/25 [Rx Confirmed 05/26/25] aspirin 81 mg tablet,delayed release 81 mg PO BID #60 tabs 04/13/25 [Rx Confirmed 05/26/25] doxycycline hyclate 100 mg tablet 100 mg PO BID #14 tabs 04/13/25 [Rx Confirmed 05/26/25] gabapentin 300 mg capsule 300 mg PO .qhs #30 caps 04/13/25 [Rx Confirmed 05/26/25] oxycodone 5 mg tablet 5 mg PO Q6H PRN pain #28 tabs 04/13/25 [Rx Confirmed 05/26/25] sennosides 8.6 mg-docusate sodium 50 mg tablet (Senna-S) 1 tab-cap PO QDAY #30 tabs 04/13/25 [Rx Confirmed 05/26/25] Exam Exam Patient is in no acute distress and is cooperative with the examination today. Breathing is nonlabored. In no respiratory distress. Bilateral extremities were evaluated and demonstrates sensation intact to light touch. Palpable pedal pulses are present. No significant edema is present. Bilateral hips were examined. The patient has no pain with log roll of the hips. Internal rotation to 30 degrees and external rotation to 30 degrees is painless. Negative FADIR. Left knee incisions clean dry and intact. Range of motion is 0 to 110 degrees Right knee demonstrates 20 degrees of varus deformity. He is very tender to palpation medially. The knee feels stable to varus and valgus stress. X-rays demonstrate complete joint space obliteration with significant varus deformity. Significant osteophytes are present. I would estimate about 25 degrees of deformity Assessment and Plan Problem List (1) Degenerative arthritis of knee, bilateral: Status: Acute Plan: Patient is a 53-year-old male with severe bilateral knee arthritis of both knees. patient is doing well status post left total knee replacement. He is doing well from his left total knee replacement and would like the right side 1 done. I think this is reasonable if he has extreme deformity on the right side as well. We may need augments on the right side given the amount of tibial bone loss. I will get new x-rays today as well The nature and purpose of the total knee replacement, alternative method(s) of treatment, the material risks involved, and the possibility of complications were fully explained to the patient. The patient does NOT have any of the following contraindications to TKA: - Active infection of the knee joint, OR - Active systemic bacteremia, OR - Active skin infection or open wound at surgical site, OR - Neuropathic arthritis, OR - Severe, rapidly progressive neurological disease, OR - Severe medical condition that makes risks of surgery outweigh the potential benefit The patient was told the most common risks and complications associated with a total knee replacement include, but are not limited to: blood clots in the leg, fatal pulmonary embolism, dislocation of the prosthesis, intraoperative and postoperative fractures of the femur or tibia, infection, failure of the prosthesis or grafting materials, complications from anesthesia, reactions to blood transfusions, postoperative leg length inequality, instability of the knee replacement, nerve damage or injury, vascular injury, delayed wound healing, infection, other injury or even . In addition, there are risks associated with anesthesia given during this operation. Also, the patient was told that after undergoing a total knee replacement there may still be persistent pain or disability. The patient was informed that the success of this operation in part depends upon the mechanical devices which are going to be implanted and that these devices can fail or malfunction, and may need to be repaired or replaced and there are no guarantees as to the longevity of this device or its parts and that it or its parts could fail prematurely. The patient was also notified that during the course of surgery, there may be a need to use bone graft from donors, and that any bone graft used will be carefully screened for communicable diseases, including AIDS, hepatitis, Bon-Creutzfeldt, or other diseases, but despite the screening procedures, there is a small chance that they could contract one of these diseases. Finally, the patient was asked to follow completely and fully with all advice and recommended treatments, and that recovery and ultimate outcome are affected by their compliance with recommended treatment. We discussed the risks, benefits and treatment alternatives, and the patient is interested in proceeding with surgery. We will try to set this up as expeditiously as possible. Office Procedures GNS Level of Care Nursing/Assessment Patient Status: Established Patient Nursing Assessment/Reassesment: Medication Reconciliation, Update PMH in EMR and Vital Signs Coordination of Care: Complex Care and Chronic Disease 1-5, Education Complex Pt/Fam, Consent,records obtained, informed consent, Lab and Imaging orders, Results/Orders obtained and Staff clarify orders Special Needs: Language special needs Established Patient Charge Established Patient Point Assignment: 110 Established Patient Point Charge: EP Level 3 (80-115) MA Intake Visit Data Collection New Patient or Established: Established Patient (seen at [facility] within 3 years) Reason for Visit:: 4 WEEK POST OP LEFT TKA Seen by Clinical Staff ONLY (RN/MA): 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 PCP or OBGYN visit in last 3 months: Yes Hx Now: No Do You Feel Safe at Home: Yes Authorities Contacted: N/A Questionairres Past Medical History Past Medical History Have you ever been diagnosed with any of the following: Neurological Problems Seizures: No Cardiology Problems Congestive Heart Failure: No Hypertension: Yes Varicose Veins: Yes Respiratory Problems Chronic Obstructive Pulmonary Disease (COPD): No Smoking: No Smoking Exposure: No Tobacco Use: No Clubbing: No Exposure to Respiratory Irritants: No Stomache/Intestinal Problems Hepatitis: No Obesity: Yes Genital/Urinary Problems Renal Disease: No Musculoskeletal Problems Arthritis: Yes Endocrine Problems Diabetes Mellitus Type 1: No Diabetes Mellitus Type 2: No Other Problems Hospitalization: No Shingles: No Falls: Yes Blood Transfusions: No Blood Transfusion Reaction: No (n/a) Anesthesia Reactions: No Chicken Pox: Yes Measles: No Cancer: No Subjective Visit Visit for: follow up visit, post op #1 and knee Immunization / Flu Flu Vaccine in the Last 12 Months: No Flu Vaccine Exclusion Criteria: No Exclusion Criteria History of Present Illness Chief complaint: 2 WEEK POST OP Laurent is a pleasant 54-year-old male with left knee pain who is post left total knee replacement. This is a complex left total knee replacement complex. He is very happy with pain relief. He has significant varus of his right knee. I think we will get him set up for total knee replacement. He has tried multiple injections (x2) and anti-inflammatories as well as physical therapy. Personal History BMI Counceling provided: Yes Pain Pain level (0-10): 6 Pain duration: ON AND OFF Pain location: anterior Pain quality: aching Associated signs & symptoms: numbness Ambulatory data Ambulatory device: walker Treatments Improvement with previous injections: No Improvement with PT: No Improvement with NSAIDS: no Review of Systems Review of Systems: All systems negative unless otherwise noted in HPI.
[2025-05-26 08:53] VITALS: BP 145/94; PULSE 69; RESP 18; TEMP 36.4; O2SAT 97; BMI 47.5
== END 2025-05-26 08:55 | disposition home or self-care (01) ==
LOC: HODSRG 08:18
PROVIDERS: PCP Physician Assistant Medical; Referring Provider Physician Assistant Medical; Supervising Provider Orthopaedic Surgery Adult Reconstructive Orthopaedic Surgery; Visit Provider Orthopaedic Surgery Adult Reconstructive Orthopaedic Surgery
DX: Z47.1 Aftercare following joint replacement surgery (principal); Z96.652 Presence of left artificial knee joint; M25.562 Pain in left knee; M21.161 Varus deformity, not elsewhere classified, right knee; M17.11 Unilateral primary osteoarthritis, right knee; I10 Essential (primary) hypertension; E66.9 Obesity, unspecified; Z68.42 Body mass index [BMI] 45.0-49.9, adult
CPT/HCPCS: 73564; 99213; J1010; J2795; G0463

== ENCOUNTER 2025-07-07 07:48 | Outpatient (AMB) | payer MEDICAID, SELFPAY ==
[2025-07-07 08:08] VITALS: BP 133/88; PULSE 79; RESP 19; TEMP 36.6; O2SAT 96; BMI 48.6
--- NOTE | 2025-07-07 08:08 | ORTHONT_ITS ---
Vital signs 07/07/25 08:08 Height 1.52 m Height Method Stated Weight 112.491 kg Weight Measurement Method Standing Scale BMI 48.6 BP 133/88 H Blood Pressure Source Automatic Cuff Blood Pressure Location Left Upper Arm Position Sitting Respiration 19 Pulse 79 Pulse Source Monitor Temp 97.8 F Temp Source Temporal Artery Scan Pulse Oximetry (%) 96 Oxygen Delivery Method Room Air Med/Allergies Allergies & Medications Allergies No Known Drug Allergies Allergy (Verified 07/07/25 08:10) Medication Reconciliation hydrochlorothiazide 25 mg tablet 25 mg PO QDAY 05/06/24 [History Confirmed 1 09/06/24] losartan 100 mg tablet 100 mg PO DAILY 04/12/25 [History Confirmed 07/07/25] acetaminophen 500 mg tablet (Acetaminophen Extra Strength) 1,000 mg (2 x 500 mg) PO Q6H PRN pain #90 tabs 04/13/25 [Rx Confirmed 07/07/25] aspirin 81 mg tablet,delayed release 81 mg PO BID #60 tabs 04/13/25 [Rx Confirmed 07/07/25] doxycycline hyclate 100 mg tablet 100 mg PO BID #14 tabs 04/13/25 [Rx Confirmed 07/07/25] gabapentin 300 mg capsule 300 mg PO .qhs #30 caps 04/13/25 [Rx Confirmed 07/07/25] oxycodone 5 mg tablet 5 mg PO Q6H PRN pain #28 tabs 04/13/25 [Rx Confirmed 07/07/25] sennosides 8.6 mg-docusate sodium 50 mg tablet (Senna-S) 1 tab-cap PO QDAY #30 tabs 04/13/25 [Rx Confirmed 07/07/25] Exam Exam Patient is in no acute distress and is cooperative with the examination today. Breathing is nonlabored. In no respiratory distress. Bilateral extremities were evaluated and demonstrates sensation intact to light touch. Palpable pedal pulses are present. No significant edema is present. Bilateral hips were examined. The patient has no pain with log roll of the hips. Internal rotation to 30 degrees and external rotation to 30 degrees is painless. Negative FADIR. Left knee incisions clean dry and intact. Range of motion is 0 to 110 degrees Right knee demonstrates 20 degrees of varus deformity. He is very tender to palpation medially. The knee feels stable to varus and valgus stress. X-rays demonstrate complete joint space obliteration with significant varus deformity. Significant osteophytes are present. I would estimate about 25 degrees of deformity Assessment and Plan Problem List (1) Degenerative arthritis of knee, bilateral: Status: Acute Plan: Patient is a 53-year-old male with severe bilateral knee arthritis of both knees. patient is doing well status post left total knee replacement. He is doing well from his left total knee replacement and would like the right side 1 done. I think this is reasonable if he has extreme deformity on the right side as well. We may need augments on the right side given the amount of tibial bone loss. The nature and purpose of the total knee replacement, alternative method(s) of treatment, the material risks involved, and the possibility of complications were fully explained to the patient. The patient does NOT have any of the following contraindications to TKA: - Active infection of the knee joint, OR - Active systemic bacteremia, OR - Active skin infection or open wound at surgical site, OR - Neuropathic arthritis, OR - Severe, rapidly progressive neurological disease, OR - Severe medical condition that makes risks of surgery outweigh the potential benefit The patient was told the most common risks and complications associated with a total knee replacement include, but are not limited to: blood clots in the leg, fatal pulmonary embolism, dislocation of the prosthesis, intraoperative and postoperative fractures of the femur or tibia, infection, failure of the prosthesis or grafting materials, complications from anesthesia, reactions to blood transfusions, postoperative leg length inequality, instability of the knee replacement, nerve damage or injury, vascular injury, delayed wound healing, infection, other injury or even . In addition, there are risks associated with anesthesia given during this operation. Also, the patient was told that after undergoing a total knee replacement there may still be persistent pain or disability. The patient was informed that the success of this operation in part depends upon the mechanical devices which are going to be implanted and that these devices can fail or malfunction, and may need to be repaired or replaced and there are no guarantees as to the longevity of this device or its parts and that it or its parts could fail prematurely. The patient was also notified that during the course of surgery, there may be a need to use bone graft from donors, and that any bone graft used will be carefully screened for communicable diseases, including AIDS, hepatitis, Bon-Creutzfeldt, or other diseases, but despite the screening procedures, there is a small chance that they could contract one of these diseases. Finally, the patient was asked to follow completely and fully with all advice and recommended treatments, and that recovery and ultimate outcome are affected by their compliance with recommended treatment. We discussed the risks, benefits and treatment alternatives, and the patient is interested in proceeding with surgery. We will try to set this up as expeditiously as possible. Office Procedures GNS Level of Care Nursing/Assessment Patient Status: Established Patient Nursing Assessment/Reassesment: Medication Reconciliation, Update PMH in EMR and Vital Signs Coordination of Care: Complex Care and Chronic Disease 1-5, Education Complex Pt/Fam, Consent,records obtained, informed consent, Results/Orders obtained and Staff clarify orders Special Needs: Language special needs Established Patient Charge Established Patient Point Assignment: 95 Established Patient Point Charge: EP Level 3 (80-115) MA Intake Visit Data Collection New Patient or Established: Established Patient (seen at [facility] within 3 years) Reason for Visit:: PRE OP RIGHT TKA Seen by Clinical Staff ONLY (RN/MA): No Concrete Placement Equipment Operator Required: Yes PCP or OBGYN visit in last 3 months: Yes Hx Now: No Do You Feel Safe at Home: Yes Authorities Contacted: N/A Questionairres Past Medical History Past Medical History Have you ever been diagnosed with any of the following: Neurological Problems Seizures: No Cardiology Problems Congestive Heart Failure: No Hypertension: Yes Varicose Veins: Yes Respiratory Problems Chronic Obstructive Pulmonary Disease (COPD): No Smoking: No Smoking Exposure: No Tobacco Use: No Clubbing: No Exposure to Respiratory Irritants: No Stomache/Intestinal Problems Hepatitis: No Obesity: Yes Genital/Urinary Problems Renal Disease: No Musculoskeletal Problems Arthritis: Yes Endocrine Problems Diabetes Mellitus Type 1: No Diabetes Mellitus Type 2: No Other Problems Hospitalization: No Shingles: No Falls: Yes Blood Transfusions: No Blood Transfusion Reaction: No (n/a) Anesthesia Reactions: No Chicken Pox: Yes Measles: No Cancer: No Subjective Visit Visit for: follow up visit and knee Immunization / Flu Flu Vaccine in the Last 12 Months: No Flu Vaccine Exclusion Criteria: No Exclusion Criteria History of Present Illness Chief complaint: PRE OP RIGHT TKA Laurent is a pleasant 54-year-old male with left knee pain who is post left total knee replacement. This is a complex left total knee replacement complex. He is very happy with pain relief. He has significant varus of his right knee. I think we will get him set up for total knee replacement. He has tried multiple injections (x2) and anti-inflammatories as well as physical therapy. Personal History Red flag PMH: none BMI Counceling provided: Yes Additional comments: KNEE ICE BRACE GIVEN TO PT FOR SX Pain Pain level (0-10): 8 Pain duration: ON AND OFF Pain location: anterior Pain quality: aching Associated signs & symptoms: numbness Treatments Improvement with previous injections: No Improvement with PT: No Improvement with NSAIDS: no Review of Systems Review of Systems: All systems negative unless otherwise noted in HPI.
== END 2025-07-07 08:22 | disposition home or self-care (01) ==
PROVIDERS: PCP Physician Assistant Medical; Referring Provider Physician Assistant Medical; Supervising Provider Orthopaedic Surgery Adult Reconstructive Orthopaedic Surgery; Visit Provider Orthopaedic Surgery Adult Reconstructive Orthopaedic Surgery
DX: M17.11 Unilateral primary osteoarthritis, right knee (principal); Z96.652 Presence of left artificial knee joint
CPT/HCPCS: 99213; G0463

== ENCOUNTER → 2025-07-07 | Outpatient (CLI) | payer MEDICAID, SELFPAY ==
--- NOTE | 2025-07-07 09:00 | XR_ITS ---
Examination: CT right lower extremity, without contrast. 2-D sagittal reconstructions. 2-D coronal reconstructions. 3-D reconstructions. Date and time of exam: July 07, 2025, 0841 hours INDICATIONS: Diagnosis primary unilateral osteoarthritis right knee, right knee pain 1 year CTDI: vol (mGy): 34.3 DLP: (mGycm): 1443 Technique: Multiple 1.25 mm axial sections of the right lower extremity without intravenous contrast have been obtained. 2-D sagittal and coronal reconstructions have been obtained. 3-D reconstructions have been obtained. Low dose protocols were performed. One or more of the following dose reduction techniques were used; automated exposure control, adjustment of the mA and/or KV according to patient size, use of iterative reconstruction technique. Findings: Significant osteopenia Moderate narrowing right hip joint No right hip fracture or dislocation, no avascular necrosis Severe right knee tricompartment osteoarthritis Marked irregularity and depression of the medial tibial plateau No acute fracture No patellar dislocation IMPRESSION: Severe right knee tricompartment osteoarthritis
== END | disposition home or self-care (01) ==
PROVIDERS: PCP Orthopaedic Surgery Adult Reconstructive Orthopaedic Surgery; Referring Provider Orthopaedic Surgery Adult Reconstructive Orthopaedic Surgery; Visit Provider Orthopaedic Surgery Adult Reconstructive Orthopaedic Surgery
DX: M17.11 Unilateral primary osteoarthritis, right knee (principal)
CPT/HCPCS: 73700

== ENCOUNTER 2025-08-03 06:35 | Day surgery (SDC) | payer MEDICAID, SELFPAY ==
[2025-08-02 06:49] VITALS: BMI 44.1
[2025-08-02 08:04] LABS: Basophils # (Auto) 0.1 Thou/mm3 (0.0-0.2); Basophils % (Auto) 1 % (0-2.5); Eosinophils # (Auto) 0.5 Thou/mm3 (0.0-0.5); Eosinophils % (Auto) 4 % (0-10); Hematocrit 42.4 % (41.0-53.0); Hemoglobin 14.1 g/dL (13.5-16.0); Immature Granulocytes Auto 0.05 Thou/mm3 (0.00-0.00); Lymphocytes # (Auto) 3.2 Thou/mm3 (1.0-4.8); Lymphocytes % (Auto) 27 % (10-50); Mean Corpuscular HGB Conc 33.3 g/dl (31.0-37.0); Mean Corpuscular Hemoglobin 26.7 pg (25.0-35.0); Mean Corpuscular Volume 80 fL (80-100); Monocytes # (Auto) 1.2 Thou/mm3 (0.0-0.8); Monocytes % (Auto) 10 % (0-12); Neutrophils # (Auto) 6.8 Thou/mm3 (1.8-7.7); Neutrophils % (Auto) 57 % (37-80); Nucleated Red Blood Cell # 0.00 Thou/mm3 (0.00-0.00); Nucleated Red Blood Cell % 0 /100 WBC (0); Platelet Count 265 Thou/mm3 (140-440); RDW Standard Deviation 39.8 fL (35.1-43.9); Red Blood Count 5.28 Miln/mm3 (4.50-5.90); White Blood Count 12.0 Thou/mm3 (3.8-10.6)
[2025-08-02 08:21] LABS: Alanine Aminotransferase 27 U/L (10-49); Albumin, Serum 4.5 gm/dL (3.5-5.0); Albumin/Globulin Ratio 1.3 (1.2-2.2); Alkaline Phosphatase 171 U/L (46-116); Anion Gap 10 (7-16); Aspartate Amino Transferase 34 U/L (0-34); BUN/Creatinine Ratio 15 Ratio (12-20); Bilirubin,Total 0.4 mg/dL (0.3-1.2); Blood Urea Nitrogen 15 mg/dL (9-23); Calcium 9.7 mg/dL (8.3-10.6); Calcium (Corrected) 9.7 mg/dL (8.5-10.1); Carbon Dioxide 28.7 mMol/L (20.0-31.0); Chloride 104 mMol/L (98-107); Creatinine (Component) 1.0 mg/dL (0.6-1.3); Estimated Creatinine Clearance 94.9 mL/min (>60); Globulin 3.4 gm/dL (2.3-3.5); Glucose 101 mg/dL (74-106); INR 0.9 (0.9-1.3); Osmolality,Calculated 285 (275-295); Partial Thromboplastin Time 24.2 Seconds (22.0-36.0); Potassium 3.7 mMol/L (3.4-5.1); Prothrombin Time 9.8 Seconds (9.0-12.2); Sodium 143 mMol/L (136-145); Total Protein 7.9 gm/dL (5.7-8.2); eGFR > 60 See Note
--- NOTE | 2025-08-02 14:51 | SUR.PREOP ---
WBC 12, Angelina SIEGEL notified, stated she will let Dr Buckley know.
[2025-08-03] VITALS (12 sets, daily range): BP systolic 94–125; BP diastolic 63–82; PULSE 76–105; RESP 12–21; TEMP 36.3–36.4; O2SAT 94–99; BMI 43.9
[2025-08-03] MEDS: ACETAMINOPHEN 325 MG TABLET 650 MG PO (07:08)
[2025-08-03] MEDS: PREGABALIN 75 MG CAPSULE PO (07:08)
[2025-08-03] MEDS: MELOXICAM 7.5 MG TABLET PO (07:09)
[2025-08-03] MEDS: RINGERS LACTATED 1000 ML 1,000 ML 20 ML IV (07:09)
--- NOTE | 2025-08-03 07:30 | CHAP ---
Visited with patient and gave encouragement and prayer before patient's procedure.
--- NOTE | 2025-08-03 12:02 | ESOP_ITS ---
Date of Procedure 08/03/25 Pre Op Diagnosis right knee osteoarthritis Post Op Diagnosis right knee osteoarthritis Procedure right total knee replacement alina complex Findings full thickness cartilage loss and large medial defect Procedure Description Indication: The patient is a 55 year old who has a long history of right knee pain. X-rays show degenerative arthritis involving the knee. Over the past several years the patient has had increasing pain, progressive limitation in function. He has failed conservative measures including activity modification, physical therapy, injections, anti-inflammatories, and assistive devices. After a lengthy discussion of the risks and benefits, the patient presents now for total knee replacement. The nature and purpose of the total knee replacement, alternative method(s) of treatment, the material risks involved, and the possibility of complications were fully explained to the patient. The patient was told the most common risks and complications associated with a total knee replacement include, but are not limited to blood clots in the leg, fatal pulmonary embolism, dislocation of the prosthesis, intraoperative and postoperative fractures of the femur or tibia, infection, failure of the prosthesis or grafting materials, complications from anesthesia, reactions to blood transfusions, postoperative leg length inequality, instability of the knee replacement, nerve damage or injury, vascular injury, delayed wound healing, infections, other injury or even . In addition, there are risks associated with anesthesia given during this operation, temporary or permanent numbness on the skin lateral to the incision can be a complication unique to total knee surgery, and kneeling can be painful after knee replacement surgery. Also, the patient was told that after undergoing a total knee replacement there may still be pain or disability. We discussed with the patient that we will be using a robot-assisted technology. We discussed that there is a possibility of converting to manual instrumentation. The patient was informed that the success of this operation in part depends upon the mechanical devices which are going to be implanted and that these devices can fail or malfunction, and may need to be repaired or replaced and there are no guarantees as to the longevity of this device or its part and that it or its parts could fail prematurely. Finally, the patient was asked to follow completely and fully with all advice and recommended treatments, and that recovery and ultimate outcome are affected by their compliance with recommended treatment. Surgical technique: Patient was marked and consented in the pre-operative area. The patient was brought to the operating room and placed on the operating table in a supine position. Prior to positioning, a timeout procedure was performed between the surgeon, the anesthesiologist, and the nursing staff where the patient and the operative side were identified and confirmed. After adequate general anesthetic was obtained, the right lower extremity was prepped and draped in the usual sterile fashion. A weight based dose of Cefazolin were administered within 1 hour prior to incision. The robot was preregistered and calirated before the incision. The extremity was exsanguinated with an esmarch badge and tourniquet inflated to 250mmHg. A midline incision was made. A median parapatellar arthrotomy was made. The patella was subluxed laterally. A medial release was performed to expose the medial tibia. His femoral and tibial pins were placed through an intra incisional manner for both cases. Every effort was made to ensure that the distal most aspect of the pin was hung in the second cortex. The arrays were t hen tightened several times to ensure that it was fixed for the remainder of the case. Both femoral and tibial checkpoints were then placed. We then went through the registration process of the bone. We then assessed the knee deformity and attempted to correct it. We also used the robot to aid in judging laxity in both extension and flexion which was difficult given the large medial defect.. Final based on laxity and alignment we changed the preoperative assessment to obtain proper proper implant positioning and to correct deformity. Attention was then placed to the tibia. We made a tibial cut using the robot ensuring that both the MCL and the patella tendon were protected with retractors. We then placed a trial to assess rotation and to plan the sagital cut of the tibia. We then cut the medial side 10mm deeper to ensure that we were on bone in order to cut the augment. After this cut was done we used a recipricating saw to finish the augment cut. We placed retractors posteriorly during all tibial cut as well. We then went to the femur and made the posterior cut followed by the anterior cut and the anterior chamfer. The bone was then removed and we made a distal femur cut and a posterior chamfer cut. We verified all cuts. We then cut the box to accept a PS A trial reduction was performed with a size 4 femoral component and a size 3 keeled tibial component with a tibial augment of 10mm. The patella tracked centrally, and no lateral retinacular release was necessary. The trial implants were removed. The arrays, pins, and checkpoints were all removed. We performed a verification that all pins were removed. The cut bone surfaces were lavaged. A size 4 right femoral component, a size 3 keeled tibial component were impacted into position using 2 bags of palacos for both the tibia and femur separately. The tibia was cemented after throrough irrigation of the canal and placement of a cement restrictor followed by suctioning and pressurization of the canal. A trial insert was placed and impacted into position. The knee was placed in extension until the cement hardened. The knee was felt to be well balanced in the sagittal and coronal plane. The final 3x14 mm PS insert was impacted into the tibial tray. The knee was brought out to full extension, flexed up to 120 degrees. It was stable to varus and valgus stress and appropriately balanced in flexion and extension. The wounds were copiously irrigated following deflation of tourniquet. The medial retinaculum was reapproximated with #1 vicryl and quill. The subcutaneous tissues were closed with 0 and 2-0 interrupted Vicryl. The skin was closed with 3-0 Monofilament V loc suture. A sterile dressing was applied. The patient was transferred to a bed and brought to recovery in stable condition. The patient tolerated the procedure well. There were no intraoperative complications. Sponge and needle counts were correct times 2. As the attending surgeon, I attest I was present and performed the entire operation. Grafts/Implants Size 4 PS Femur Size 3 Tibia 14mm PS 2 bags of palacos 10mm tibial augment PLan: DC tomorrow or today abx knee immobilizer for 2 weeks Anesthesia spinal Implants Implants comments: ryan Pathology / specimen None Pathology comment: none Estimated Blood Loss 150 Condition Stable Disposition same day Surgeon Faraz Buckley MD Surgical Staff Operation Date: 08/03/25 10:15 Case Staff REAL ESTATE LEGAL SECRETARY: Devon Boyle RN First Assistant: Dian Eng
--- NOTE | 2025-08-03 12:07 | XR_ITS ---
EXAMINATION: Right knee 2 views TECHNIQUE: AP lateral right knee 2 views Date and time: August 03, 2025, 1322 hours INDICATIONS: Postop knee replacement FINDINGS: Total right knee replacement Satisfactory alignment Moderate osteopenia No fracture IMPRESSION: Total right knee arthroplasty with satisfactory alignment
--- NOTE | 2025-08-03 12:44 | SUR.PHASEI ---
pt received from OR in recovery bay 5. pt awake and alert, breathing unlabored on oxymask 8l. v/s stable. pt dressing to right lower extremity cdi, knee imbolizer in place. report received from Leesa THOMAS and Devon GARCIA.
--- NOTE | 2025-08-03 13:03 | SUR.PHASEI ---
pt able to toelrate oral fluids without difficulty swallowing or nausea/vomiting.
--- NOTE | 2025-08-03 16:23 | SUR.PHASEII ---
pt awake and alert, breathing unlabored on room air. v/s stable. pt dressing to right lower extremity cdi. knee imbolizer in place. pt cleared by physical therapist Reid. pt able to ambulate to [facility] bathroom using walker. d/c instructions given with Maciej in room using in house real estate marketing coordinator valentina Frankel questions answered. pt d/c via wheelchair with all belongings.
== END 2025-08-03 16:23 | disposition home or self-care (01) ==
PROVIDERS: Anesthesiology; PCP Physician Assistant Medical; Referring Provider Orthopaedic Surgery Adult Reconstructive Orthopaedic Surgery; Visit Provider Orthopaedic Surgery Adult Reconstructive Orthopaedic Surgery
PROC: (CPT 27447; principal; 2025-08-03 10:15)
DX: M17.11 Unilateral primary osteoarthritis, right knee (principal)
CPT/HCPCS: 27447; 20985; 36415; 73560; 80053; 85025; 85610; 85730; 97162; A4217; A4649; C1713; C1776; J0131; J0690; J1100; J1885; J2250; J2371; J2405; J2704; J2795; J3010; J3490; J7120; J7999; A4648; A9270

== ENCOUNTER 2025-08-23 13:33 | Outpatient (AMB) | payer MEDICAID, SELFPAY ==
--- NOTE | 2025-08-23 14:02 | PD.ORTHCLVIS ---
Vital signs 08/23/25 14:03 Height 1.6 m Height Method Stated Weight 114.362 kg Weight Measurement Method Standing Scale BMI 44.6 BP 120/85 H Blood Pressure Source Automatic Cuff Blood Pressure Location Left Upper Arm Position Sitting Respiration 19 Pulse 92 Pulse Source Monitor Temp 97.6 F Temp Source Temporal Artery Scan Pulse Oximetry (%) 97 Oxygen Delivery Method Room Air Med/Allergies Allergies & Medications Allergies No Known Drug Allergies Allergy (Verified 08/23/25 14:05) Medication Reconciliation hydrochlorothiazide 25 mg tablet 25 mg PO QDAY 05/06/24 [History Confirmed 08/23/25] losartan 100 mg tablet 100 mg PO DAILY 04/12/25 [History Confirmed 08/23/25] atorvastatin 20 mg tablet 20 mg PO EVERYOTHERDAY 08/02/25 [History Confirmed 08/23/25] acetaminophen 500 mg tablet (Acetaminophen Extra Strength) 1,000 mg (2 x 500 mg) PO Q6H PRN pain #90 tabs 08/03/25 [Rx Confirmed 08/23/25] aspirin 81 mg tablet,delayed release 81 mg PO BID #60 tabs 08/03/25 [Rx Confirmed 08/23/25] doxycycline hyclate 100 mg tablet 100 mg PO BID #14 tabs 08/03/25 [Rx Confirmed 08/23/25] gabapentin 300 mg capsule 300 mg PO .qhs #30 caps 08/03/25 [Rx Confirmed 08/23/25] oxycodone 5 mg tablet 5 mg PO Q6H PRN pain #28 tabs 08/03/25 [Rx Confirmed 08/23/25] sennosides 8.6 mg-docusate sodium 50 mg tablet (Senna-S) 1 tab-cap PO QDAY #30 tabs 08/03/25 [Rx Confirmed 08/23/25] Exam Exam Patient is in no acute distress and is cooperative with the examination today. Breathing is nonlabored. Patient has a normal mood and affect. Bilateral extremities were evaluated and demonstrates sensation intact to light touch. Palpable pedal pulses are present. No significant edema is present. Bilateral hips were examined. The patient has no pain with log roll of the hips. Internal rotation to 30 degrees and external rotation to 30 degrees is painless. Negative FADIR. Right knee was examined today. The right knee is in neutral alignment. The incision is clean dry and intact. Assessment and Plan Problem List (1) Degenerative arthritis of knee, bilateral: Status: Acute Plan: Patient is a 55-year-old male with severe bilateral knee arthritis of both knees. He is doing well status post right total knee replacement. Will start him with outpatient physical therapy Office Procedures GNS Level of Care Nursing/Assessment Patient Status: Established Patient Nursing Assessment/Reassesment: Medication Reconciliation, Update PMH in EMR and Vital Signs Coordination of Care: Complex Care and Chronic Disease 1-5, Education Complex Pt/Fam, Consent,records obtained, informed consent, Results/Orders obtained and Staff clarify orders Established Patient Charge Established Patient Point Assignment: 95 Established Patient Point Charge: EP Level 3 (80-115) MA Intake Visit Data Collection New Patient or Established: Established Patient (seen at [facility] within 3 years) Seen by Clinical Staff ONLY (RN/MA): No Government Guard Required: Yes PCP or OBGYN visit in last 3 months: Yes Hx Now: No Do You Feel Safe at Home: Yes Authorities Contacted: N/A Questionairres Past Medical History Past Medical History Have you ever been diagnosed with any of the following: Neurological Problems Seizures: No Cardiology Problems Hypercholesterolemia: Yes Congestive Heart Failure: No Hypertension: Yes Varicose Veins: Yes Respiratory Problems Chronic Obstructive Pulmonary Disease (COPD): No Smoking: No Smoking Exposure: No Tobacco Use: No Clubbing: No Exposure to Respiratory Irritants: No Stomache/Intestinal Problems Hepatitis: No Obesity: Yes Genital/Urinary Problems Renal Disease: No Musculoskeletal Problems Arthritis: Yes Endocrine Problems Diabetes Mellitus Type 1: No Diabetes Mellitus Type 2: No Other Problems Hospitalization: No Shingles: No Falls: Yes Blood Transfusions: No Blood Transfusion Reaction: No (n/a) Anesthesia Reactions: No Chicken Pox: Yes Measles: No Cancer: No Subjective Visit Visit for: follow up visit and knee Immunization / Flu Flu Vaccine in the Last 12 Months: No Flu Vaccine Exclusion Criteria: No Exclusion Criteria History of Present Illness Chief complaint: Right knee replacement Laurent is status post right total knee replacement 2 weeks ago and is doing well. We will start him with outpatient physical therapy. He is walking with no assistive device Personal History Red flag PMH: none BMI Counceling provided: Yes Additional comments: KNEE ICE BRACE GIVEN TO PT FOR SX Pain Pain level (0-10): 8 Pain duration: ON AND OFF Pain location: anterior Pain quality: aching Associated signs & symptoms: numbness Treatments Improvement with previous injections: No Improvement with PT: No Improvement with NSAIDS: no Review of Systems Review of Systems: All systems negative unless otherwise noted in HPI.
[2025-08-23 14:03] VITALS: BP 120/85; PULSE 92; RESP 19; TEMP 36.4; O2SAT 97; BMI 44.6
== END 2025-08-23 14:27 | disposition home or self-care (01) ==
LOC: HODSRG 13:33
PROVIDERS: PCP Physician Assistant Medical; Referring Provider Physician Assistant Medical; Supervising Provider Orthopaedic Surgery Adult Reconstructive Orthopaedic Surgery; Visit Provider Orthopaedic Surgery Adult Reconstructive Orthopaedic Surgery
DX: Z47.1 Aftercare following joint replacement surgery (principal); Z96.651 Presence of right artificial knee joint; M17.12 Unilateral primary osteoarthritis, left knee; I10 Essential (primary) hypertension; E66.9 Obesity, unspecified; Z68.41 Body mass index [BMI] 40.0-44.9, adult
CPT/HCPCS: 99213; G0463